=== PATIENT | female | born 1995 | race Caucasian/White ===

== ENCOUNTER 2016-10-13 20:01 | Outpatient (CLI) | payer MEDICAID ==
[~2016-10-13] VITALS: Ht 170.2 cm; Wt 100.0 kg
[~2016-10-13 20:01] MED LIST: IBUP-1222 PO; NITR100C56 PO; PREN1TAB60 PO
[2016-10-13] MEDS ORDERED: NITROFURANTOIN (MACROBID) 100 MG CAPSULE ONE (21:27)
[2016-10-13] MEDS ORDERED: NITROFURANTOIN (MACROBID) 100 MG CAPSULE PO ONE (21:30)
== END 2016-10-13 22:00 | disposition home or self-care (01) ==
LOC: LDOP 20:01
PROVIDERS: ATTEND Obstetrics & Gynecology
DX: O26.893 Other specified pregnancy related conditions, third trimester (principal); O62.9 Abnormality of forces of labor, unspecified; O21.9 Vomiting of pregnancy, unspecified; R19.7 Diarrhea, unspecified; M54.9 Dorsalgia, unspecified; R10.30 Lower abdominal pain, unspecified; Z3A.37 37 weeks gestation of pregnancy
CPT/HCPCS: 59025; 81001; 87086; 87186; 87324; 99211; G0463

== ENCOUNTER 2016-10-18 06:11 | Inpatient (IN) | payer MEDICAID ==
[~2016-10-18] VITALS: Ht 170.2 cm; Wt 99.5 kg
[2016-10-18 06:25] VITALS: BP 110/69
[2016-10-18] MEDS ORDERED: CEPH-368 PO (06:25)
[2016-10-18] MEDS ORDERED: D5%-LACTATED RINGERS 1,000 ML IV SCH (06:37)
[2016-10-18] MEDS ORDERED: OXYTOCIN 30U/ 0.9% NaCL 500ML 500 ML IV ONE (06:37)
[2016-10-18] MEDS: LACTATED RINGERS 1,000 ML IV SCH ×3 (06:52→09:37)
[2016-10-18] MEDS ORDERED: ONDANSETRON 2MG/ML, 2ML ONE (06:54)
[2016-10-18] MEDS ORDERED: FENTANYL PF 100 MCG/2ML IV PRN (07:00)
[2016-10-18] MEDS ORDERED: ONDANSETRON 2MG/ML, 2ML IVPush PRN (07:00)
[2016-10-18] MEDS ORDERED: FENTANYL PF 100 MCG/2ML IVPush PRN (07:00)
[2016-10-18 07:06] LABS: HEMATOCRIT 33.7 % (34.6-47.8); HEMOGLOBIN 11.4 g/dL (11.7-16.4); WHITE BLOOD COUNT 9.9 x10^3/uL (3.4-10)
[2016-10-18] MEDS ORDERED: NEWBORN KIT ONE (07:08)
[2016-10-18] MEDS ORDERED: OXYTOCIN 30U/ 0.9% NaCL 500ML 500 ML ONE (07:09)
[2016-10-18] MEDS ORDERED: FENTANYL PF 100 MCG/2ML ONE ×2 (07:09→09:18)
[2016-10-18] MEDS ORDERED: BUPIVACAINE 0.25% ONE ×2 (09:19→09:23)
[2016-10-18] MEDS ORDERED: FENTANYL/BUPIV./NS/PF 250 ML EPIDCONT ONE ×2 (09:19→09:23)
[2016-10-18] MEDS ORDERED: LIDOCAINE/PF 1.5-EPI 1:200K, 30 ML ONE (09:23)
[2016-10-18] MEDS ORDERED: IBUPROFEN 600 MG TABLET ONE (12:00)
[2016-10-18] MEDS: OXYTOCIN 30U/ 0.9% NaCL 500ML 500 ML IV SCH ×3 (12:06→23:44)
[2016-10-18] MEDS: IBUPROFEN 600 MG TABLET PO PRN ×2 (12:11→19:53)
[2016-10-18] MEDS ORDERED: CALCIUM CARBONATE 500 MG TAB.CHEW PO PRN (12:30)
[2016-10-18] MEDS ORDERED: ONDANSETRON 2MG/ML, 2ML IV PRN (12:30)
[2016-10-18] MEDS ORDERED: MISOPROSTOL 200 MCG TABLET PR PRN (12:30)
[2016-10-18] MEDS ORDERED: DOCUSATE 100 MG CAPSULE PO PRN (12:30)
[2016-10-18] MEDS ORDERED: METHYLERGONOVINE 0.2 MG/ML IM PRN (12:30)
[2016-10-18] MEDS ORDERED: MAGNESIUM HYDROXIDE 8%, 30ML UDC PO PRN (12:30)
[2016-10-18] MEDS ORDERED: GLYCERIN ADULT SUPP PR PRN (12:30)
[2016-10-18] MEDS ORDERED: CARBOPROST TROMETHAMINE 250 MCG/ML, 1ML IM PRN (12:30)
[2016-10-18] MEDS ORDERED: ACETAMINOPHEN 325 MG TABLET PO PRN ×2 (12:30)
[2016-10-18] MEDS ORDERED: BISACODYL 10 MG SUPP PR PRN (12:30)
[2016-10-18] MEDS ORDERED: OXYcodone/APAP 5/325MG TABLET PO PRN ×2 (12:30)
[2016-10-18 15:14] VITALS: BP 109/53
[2016-10-18 19:10] VITALS: BP 109/64
[2016-10-18 20:04] LABS: HEMATOCRIT 33.4 % (34.6-47.8); HEMOGLOBIN 11.5 g/dL (11.7-16.4); WHITE BLOOD COUNT 12.6 x10^3/uL (3.4-10)
[2016-10-19 00:45] VITALS: BP 108/65
[2016-10-19] MEDS: IBUPROFEN 600 MG TABLET PO PRN ×2 (02:04→07:50)
[2016-10-19 07:48] VITALS: BP 110/79
[2016-10-19] MEDS ORDERED: PRENATAL VIT/IRON/FA 1 EACH TABLET PO SCH (09:00)
[2016-10-19] MEDS ORDERED: OXYC-302 PO (10:17)
[2016-10-19] MEDS ORDERED: IBUP-1222 PO (10:18)
== END 2016-10-19 14:00 | disposition home or self-care (01) | DRG 775 ==
LOC: LDOP 06:11 → LDIP 06:45 → 2NW 14:37
PROVIDERS: ADMIT Obstetrics & Gynecology; ATTEND Obstetrics & Gynecology
PROC: 10E0XZZ Delivery of Products of Conception, External Approach (ICD-10-PCS; principal; 2016-10-18)
PROC: 00HU33Z Insertion of Infusion Device into Spinal Canal, Percutaneous Approach (ICD-10-PCS; 2016-10-18)
PROC: 3E0R3CZ (ICD-10-PCS; 2016-10-18)
DX: O80 Encounter for full-term uncomplicated delivery (principal); Z37.0 Single live birth; Z14.1 Cystic fibrosis carrier; Z3A.38 38 weeks gestation of pregnancy
CPT/HCPCS: 36415; 85025; 86850; 86900; J2405; J3010; J3490; J2590; J7120

== ENCOUNTER 2020-01-14 16:50 | Emergency (ER) | payer MEDICAID ==
[~2020-01-14] VITALS: Ht 170.2 cm; Wt 110.0 kg
[~2020-01-14 16:50] MED LIST changes: +CEPH-368 PO; +OXYC-302 PO
[2020-01-14 17:29] VITALS: BP 123/79
[2020-01-14 18:07] LABS: ALANINE AMINOTRANSFERASE 33 U/L (12-78); ALBUMIN 3.7 g/dL (3.4-5.0); ANION GAP 7 mmol/L (5-15); CALCIUM 9.3 mg/dL (8.5-10.1); CHLORIDE 108 mmol/L (98-107); CREATININE 0.75 mg/dL (0.55-1.02)
[2020-01-14 18:24] LABS: ALKALINE PHOSPHATASE 62 U/L (45-117); BILIRUBIN,TOTAL 0.2 mg/dL (0.2-1.0); TOTAL PROTEIN 8.1 g/dL (6.4-8.2)
--- NOTE | 2020-01-14 18:40 | NUR ---
URINE COLLECTED AND SENT TO LAB. [facility]. RESP EVEN AND UNLABORED, SAAD.
--- NOTE | 2020-01-14 18:58 | NUR ---
US IN ROOM.
[2020-01-14 19:27] LABS: MICROSCOPIC INDICATED
[2020-01-14 19:53] LABS: BASOPHILS % (AUTO) 0 % (0-1); EOSINOPHILS % (AUTO) 3 % (1-7); LYMPHOCYTES % (AUTO) 22 % (22-44); MEAN CORPUSCULAR HEMOGLOBIN 30.7 pg (27.0-34.8); MEAN CORPUSCULAR HGB CONC 33.9 g/dL (32.4-35.8); MEAN PLATELET VOLUME 10.8 fL (7.4-10.4); MONOCYTES % (AUTO) 9 % (2-9); NEUTROPHILS % (AUTO) 66 % (42-75); PLATELET COUNT 226 x10^3/uL (130-400); RED BLOOD COUNT 4.06 x10^6/uL (3.82-5.3); RED CELL DISTRIBUTION WIDTH 12.5 % (9.6-15.2)
[2020-01-14 20:05] LABS: MD NO
--- NOTE | 2020-01-14 21:03 | NUR ---
REPORT GIVEN TO BONILLA JAMES. PT RESTING ON GURNEY W/ CALL LIGHT IN REACH, RESP EVEN AND UNLABORED, NADN. AWAITING OBGYN CONSULT PER .
--- NOTE | 2020-01-14 21:04 | NUR ---
REPORT RECEIVED FROM JACOB OLIVEIRA FOR TRANSFER OF PATIENT CARE.
[2020-01-14 21:21] LABS: CLUE CELLS NONE SEEN (NONE SEEN); WET PREP WBCS MODERATE (FEW)
--- NOTE | 2020-01-14 21:42 | NUR ---
ERMD AT BEDSIDE TO DISCUSS POC.
--- NOTE | 2020-01-14 22:51 | NUR ---
Patient given discharge instructions and they have confirmed that they understand the instructions. Patient stable and ambulatory with steady gait from ED to private vehicle.
== END 2020-01-14 22:52 | disposition home or self-care (01) ==
LOC: ED 19:13
DX: O23.11 Infections of bladder in pregnancy, first trimester (principal); R11.2 Nausea with vomiting, unspecified; R10.2 Pelvic and perineal pain; R05 Cough; Z3A.08 8 weeks gestation of pregnancy
CPT/HCPCS: 36415; 76830; 80053; 81001; 84702; 85025; 87086; 87210; 87491; 87591; 87808; 99284; 99285

== ENCOUNTER 2020-08-14 06:57 | Inpatient (IN) | payer MEDICAID ==
[~2020-08-14] VITALS: Ht 170.2 cm; Wt 108.6 kg
[~2020-08-14 06:57] MED LIST changes: -OXYC-302 PO; +OXYC1TAB14 PO
[2020-08-14] MEDS ORDERED: NEWBORN KIT ONE (07:02)
[2020-08-14] MEDS ORDERED: LIDOCAINE 1%, 20ML ONE (07:02)
[2020-08-14] MEDS ORDERED: OXYTOCIN 30U/ 0.9% NaCL 500ML 500 ML ONE (07:02)
[2020-08-14] MEDS ORDERED: MISOPROSTOL 200 MCG TABLET ONE (07:02)
[2020-08-14] MEDS: LACTATED RINGERS 1,000 ML IV SCH ×2 (07:15→09:09)
[2020-08-14] MEDS ORDERED: FENTANYL PF 100 MCG/2ML IV PRN (07:30)
[2020-08-14] MEDS ORDERED: FENTANYL PF 100 MCG/2ML IVPush PRN (07:30)
[2020-08-14] MEDS ORDERED: TERBUTALINE 1 MG/ML, 1ML SQ PRN (07:30)
[2020-08-14] MEDS ORDERED: SODIUM CITRATE/CITRIC ACID 30 ML UDC PO PRN (07:30)
[2020-08-14] MEDS ORDERED: OXYTOCIN 30U/ 0.9% NaCL 500ML 500 ML IV PRN (07:30)
[2020-08-14] MEDS ORDERED: ONDANSETRON 2MG/ML, 2ML IVPush PRN (07:30)
[2020-08-14] MEDS ORDERED: OXYTOCIN 30U/ 0.9% NaCL 500ML 500 ML IV ONE (07:30)
[2020-08-14] MEDS ORDERED: METOCLOPRAMIDE 5 MG/ML, 2ML IVPush PRN (07:30)
[2020-08-14] MEDS ORDERED: D5%-LACTATED RINGERS 1,000 ML IV SCH (07:30)
[2020-08-14] MEDS ORDERED: TERBUTALINE 1 MG/ML, 1ML IVPush PRN (07:30)
[2020-08-14 07:41] VITALS: BP 112/61
[2020-08-14 08:00] LABS: BASOPHILS % (AUTO) 1 % (0-1); EOSINOPHILS % (AUTO) 3 % (1-7); LYMPHOCYTES % (AUTO) 25 % (22-44); MEAN CORPUSCULAR HEMOGLOBIN 29.9 pg (27.0-34.8); MEAN CORPUSCULAR HGB CONC 33.7 g/dL (32.4-35.8); MEAN PLATELET VOLUME 11.7 fL (7.4-10.4); MONOCYTES % (AUTO) 10 % (2-9); NEUTROPHILS % (AUTO) 62 % (42-75); PLATELET COUNT 137 x10^3/uL (130-400); RED BLOOD COUNT 3.68 x10^6/uL (3.82-5.3); RED CELL DISTRIBUTION WIDTH 13.8 % (9.6-15.2)
[2020-08-14] MEDS ORDERED: FENTANYL/BUPIV./NS/PF 250 ML EPIDCONT ONE (09:14)
[2020-08-14] MEDS ORDERED: BUPIVACAINE 0.25% ONE (09:15)
[2020-08-14] MEDS ORDERED: NALOXONE 0.4 MG/ML, 1ML IVPush PRN (09:30)
[2020-08-14] MEDS ORDERED: LACTATED RINGERS 1,000 ML IV SCH (09:30)
[2020-08-14] MEDS ORDERED: LACTATED RINGERS 1,000 ML IVBOLUS PRN (09:30)
[2020-08-14] MEDS ORDERED: EPHEDRINE 50 MG/ML, 1ML IVPush PRN (09:30)
[2020-08-14] MEDS ORDERED: FENTANYL/BUPIV./NS/PF 250 ML EPIDCONT SCH (09:30)
[2020-08-14] MEDS ORDERED: SIMETHICONE 80 MG CHEW TAB PO PRN (14:30)
[2020-08-14] MEDS ORDERED: DOCUSATE 100 MG CAPSULE PO PRN (14:30)
[2020-08-14] MEDS ORDERED: BISACODYL 10 MG SUPP PR PRN (14:30)
[2020-08-14] MEDS ORDERED: RHOGAM FROM BLOOD BANK 1 NOTE EA IM/IV ONE (14:30)
[2020-08-14] MEDS ORDERED: OXYcodone/APAP 5/325MG TABLET PO PRN (14:30)
[2020-08-14] MEDS ORDERED: GLYCERIN ADULT SUPP PR PRN (14:30)
[2020-08-14] MEDS ORDERED: METOCLOPRAMIDE 5 MG/ML, 2ML IV PRN (14:30)
[2020-08-14] MEDS ORDERED: METHYLERGONOVINE 0.2 MG/ML IM PRN (14:30)
[2020-08-14] MEDS ORDERED: CARBOPROST TROMETHAMINE 250 MCG/ML, 1ML IM PRN (14:30)
[2020-08-14] MEDS ORDERED: IBUPROFEN 800 MG TABLET PO PRN (14:30)
[2020-08-14] MEDS: OXYTOCIN 30U/ 0.9% NaCL 500ML 500 ML IV SCH (14:30)
[2020-08-14] MEDS ORDERED: DIPH,PERTUSS(ACELL),TET VAC/PF NC IM-VACC PRN (14:30)
[2020-08-14] MEDS ORDERED: MISOPROSTOL 200 MCG TABLET PR PRN (14:30)
[2020-08-14] MEDS ORDERED: ACETAMINOPHEN 325 MG TABLET PO PRN (14:30)
[2020-08-14] MEDS ORDERED: ONDANSETRON 2MG/ML, 2ML IV PRN (14:30)
[2020-08-14] MEDS: IBUPROFEN 600 MG TABLET PO PRN (16:15)
[2020-08-14 17:00] VITALS: BP 118/83
[2020-08-14 20:50] VITALS: BP 102/61
[2020-08-14 22:29] LABS: BASOPHILS % (AUTO) 0 % (0-1); EOSINOPHILS % (AUTO) 2 % (1-7); LYMPHOCYTES % (AUTO) 23 % (22-44); MEAN CORPUSCULAR HEMOGLOBIN 30.5 pg (27.0-34.8); MEAN CORPUSCULAR HGB CONC 34.8 g/dL (32.4-35.8); MONOCYTES % (AUTO) 10 % (2-9); NEUTROPHILS % (AUTO) 66 % (42-75); PLATELET COUNT 118 x10^3/uL (130-400); RED BLOOD COUNT 3.27 x10^6/uL (3.82-5.3); RED CELL DISTRIBUTION WIDTH 13.8 % (9.6-15.2)
[2020-08-15] VITALS: BP 106/72
[2020-08-15] MEDS: OXYTOCIN 30U/ 0.9% NaCL 500ML 500 ML IV SCH ×2 (00:30→08:40)
[2020-08-15] MEDS: IBUPROFEN 600 MG TABLET PO PRN ×3 (02:01→15:48)
[2020-08-15 04:30] VITALS: BP 113/79
[2020-08-15] MEDS: OXYcodone/APAP 5/325MG TABLET PO PRN ×3 (04:31→15:49)
[2020-08-15 07:55] VITALS: BP 106/75
[2020-08-15] MEDS ORDERED: PRENATAL VIT/IRON/FA 1 EACH TABLET PO SCH (09:00)
[2020-08-15 13:16] VITALS: BP 103/73
[2020-08-15] MEDS ORDERED: MEASLES,MUMPS&RUBELLA VACC/PF 0.5 ML SQ-VACC ONE (15:00)
== END 2020-08-15 16:05 | disposition home or self-care (01) | DRG 807 ==
LOC: LDIP 06:57 → 2NW 17:21
PROVIDERS: ADMIT Obstetrics & Gynecology; ATTEND Obstetrics & Gynecology
PROC: 10E0XZZ Delivery of Products of Conception, External Approach (ICD-10-PCS; principal; 2020-08-14)
PROC: 10907ZC Drainage of Amniotic Fluid, Therapeutic from Products of Conception, Via Natural or Artificial Opening (ICD-10-PCS; 2020-08-14)
PROC: 3E0R3BZ Introduction of Anesthetic Agent into Spinal Canal, Percutaneous Approach (ICD-10-PCS; 2020-08-14)
PROC: 00HU33Z Insertion of Infusion Device into Spinal Canal, Percutaneous Approach (ICD-10-PCS; 2020-08-14)
PROC: 0HQ9XZZ Repair Perineum Skin, External Approach (ICD-10-PCS; 2020-08-14)
DX: O70.0 First degree perineal laceration during delivery (principal); Z37.0 Single live birth; Z14.1 Cystic fibrosis carrier; Z3A.39 39 weeks gestation of pregnancy; Z86.16 Personal history of COVID-19; Z20.822 Contact with and (suspected) exposure to COVID-19; Z23 Encounter for immunization
CPT/HCPCS: 36415; 85025; 86592; 86850; 86900; 87635; 90707; G0378; J2590; J7120